=== PATIENT | male | born 1940 | race Hispanic/Latino ===

== ENCOUNTER 2018-09-02 05:41 | Observation (INO) | payer OTHER ==
[2018-08-30 09:24] VITALS: BP 158/65
[2018-08-30 09:27] LABS: BASOPHILS % (AUTO) 1.4 % (0.0-5.0); HEMATOCRIT 46.8 % (42-54); LYMPHOCYTES % (AUTO) 23.8 % (21.0-51.0); MEAN CORPUSCULAR HGB CONC 33.8 g/dL (32.0-36.0); MEAN CORPUSCULAR VOLUME 88.6 fL (79-99); MONOCYTES % (AUTO) 7.9 % (3.0-13.0); NEUTROPHILS % (AUTO) 64.9 % (40.0-77.0); PLATELET COUNT (AUTO) 206 K/uL (130-400); RED BLOOD CELL COUNT(AUTO) 5.28 MIL/uL (4.50-6.20); RED CELL DISTRIBUTION WIDTH 14.6 % (11.0-15.5); WHITE BLOOD COUNT (AUTO) 9.1 K/uL (4.8-10.8)
[2018-08-30 09:35] LABS: CREATININE 1.2 mg/dL (0.5-1.5); POTASSIUM 4.6 mmol/L (3.5-5.1)
[~2018-09-02] VITALS: Ht 154.9 cm; Wt 81.6 kg
[2018-09-02] VITALS (21 sets, daily range): BP systolic 85–154; BP diastolic 33–76
[~2018-09-02 05:41] MED LIST: ALLO100T PO; AMLO10TA7 PO; CEFAZOLIN SODIUM 1 GM VIAL IVP SCH; FINA5TAB41 PO; GABA-529 PO; LEVO5TAB13 PO; LISI40TA4 PO; SIMV20TA6 PO; TAMS0.4C32 PO
[2018-09-02] MEDS ORDERED: BUPIVACAINE/EPI/PF 0.25% 50 ML VIAL ONE (06:34)
[2018-09-02] MEDS ORDERED: THROMBIN-JMI 20000 UNIT KIT TP ONE (06:34)
[2018-09-02] MEDS ORDERED: BACITRACIN 50,000 UNIT VIAL ONE (06:34)
[2018-09-02] MEDS ORDERED: DURAMORPH PF1 MG/ML 10ML AMP IV ONE (06:35)
[2018-09-02] MEDS ORDERED: LACTATED RINGERS 1000ML 1,000 ML IV ONE (06:48)
--- NOTE | 2018-09-02 06:50 | NUR ---
PAIN no pain at rest ,has pain when ambulating radiates down right extremity Addendum: 09/02/18 at 0654 by OLVIN WELLS RN RN Amended: Links added.
[2018-09-02] MEDS: CEFAZOLIN SODIUM 1 GM VIAL ONE ×2 (07:04→08:50)
[2018-09-02] MEDS ORDERED: LIDOCAINE PF 2% 5ML ABBOJECT ONE (07:56)
[2018-09-02] MEDS ORDERED: DEXAMETHASONE SOD PHOSPHATE 10MG/ML 1ML VIAL ONE (07:57)
[2018-09-02] MEDS ORDERED: NEOSTIGMINE 5MG/5ML SYR IV ONE (07:57)
[2018-09-02] MEDS ORDERED: ROCURONIUM 10MG/1ML SYR 10 MG/ML ML ONE (07:57)
[2018-09-02] MEDS ORDERED: GLYCOPYRROLATE 1 MG/5 ML SYRINGE ONE (07:57)
[2018-09-02] MEDS ORDERED: PROPOFOL 10 MG/ML 20ML VIAL IV ONE ×2 (07:57)
[2018-09-02] MEDS ORDERED: FENTANYL CITRATE PF 50 MCG/1 ML 2ML VIAL ONE (07:58)
[2018-09-02] MEDS ORDERED: MIDAZOLAM HCL 1 MG/ML 2ML VIAL ONE (08:28)
[2018-09-02] MEDS ORDERED: EPHEDRINE SULFATE 50 MG/ML AMPULE ONE ×2 (08:51→09:50)
[2018-09-02] MEDS ORDERED: PROPOFOL 1000 MG/100 ML 100 ML IV ONE (09:20)
[2018-09-02] MEDS ORDERED: PHENYLEPHRINE HCL 10 MG/ML 1ML VIAL IV ONE (09:44)
[2018-09-02] MEDS ORDERED: ONDANSETRON HCL 4 MG/2 ML VIAL ONE (11:09)
[2018-09-02] MEDS ORDERED: FLUMAZENIL 0.1MG/1ML 5ML VIAL IV ONE (12:42)
[2018-09-02] MEDS ORDERED: LACTATED RINGERS 1000ML 1,000 ML IV SCH (13:24)
[2018-09-02] MEDS ORDERED: MORPHINE SULFATE 2 MG/ML 1ML SYG IVP PRN (13:30)
[2018-09-02] MEDS ORDERED: HYDROCODONE/ACETAMINOPHEN 5/325 MG TAB PO PRN (13:30)
[2018-09-02] MEDS ORDERED: PROMETHAZINE HCL 25 MG/ML 1ML AMPULE IM PRN (13:30)
[2018-09-02] MEDS ORDERED: SODIUM CHLORIDE 0.9% 10 ML VIAL IVP PRN (13:30)
--- NOTE | 2018-09-02 13:36 | NUR ---
TRANSFER FROM PACU TRANSFERRED FROM PACU, PER REPORT, VITAL SIGNS STABLE AND PATIENT AAOX3 WITH NO COMPLAINS OF PAIN. PT IS DROWSY BUT ABLE TO NOD YES AND NO WHEN ASKED QUESTIONS. VITAL SIGNS STABLE, NO NOTED SOB OR DISTRESS. PUPILS REACTIVE TO LIGHT. WILL CONTINUE TO MONITOR PT CLOSELY. INCISION TO LOWER BACK INTACT, SMALL SHADOWING ON DRESSING. BHASKAR SITE COVERED. PENDING TO COMPRESS BHASKAR 4 HR AFTER SURGERY.
[2018-09-02] MEDS: DEXAMETHASONE SOD PHOSPHATE 4 MG/ML 1ML VIAL IVP SCH ×2 (14:12→21:00)
--- NOTE | 2018-09-02 14:55 | NUR ---
SLURRED SPEECH PATIENT IS ALERT, HOB AT 30 DEGREES. FAMILY CALLED ME IN TO ROOM AFTER NOTED SLURRED SPEECH. PT ABLE TO STATE NAME AND WELL WHERE HE IS AT BUT WITH STUTTERING AND SLURRED SPEECH. PUPIL ARE REACTIVE TO LIGHT AND NO FACIAL DROOPING IS NOTED. PT IS ABLE TO RAISE BOTH ARMS AND LEGS. CRANE MAN FOR DR. LILLY MADE AWARE, STAT ORDER FOR ANGIO OF HEAD AND NECK WELL TELENEURO CONSULT. VITAL SIGNS STABLE AND PATIENT CONTINUES AWAKE WITH STUTTER. WILL CONTINUE TO MONITOR PT CLOSELY.
[2018-09-02] MEDS ORDERED: ASPIRIN 325MG EC TAB 325 MG TABLET.DR PO SCH (15:00)
[2018-09-02] MEDS ORDERED: GADODIAMIDE 10 MMOL/20 ML VIAL IV ONE (15:13)
[2018-09-02] MEDS ORDERED: IOHEXOL-350 75 ML VIAL IV ONE (15:14)
[2018-09-02 15:31] LABS: BASOPHILS % (AUTO) 0.2 % (0.0-5.0); EOSINOPHILS % (AUTO) 0.1 % (0.0-8.0); HEMATOCRIT 41.1 % (42-54); LYMPHOCYTES % (AUTO) 5.2 % (21.0-51.0); MEAN CORPUSCULAR HEMOGLOBIN 28.8 pg (27.0-33.0); MEAN CORPUSCULAR HGB CONC 32.9 g/dL (32.0-36.0); MEAN CORPUSCULAR VOLUME 87.4 fL (79-99); MONOCYTES % (AUTO) 0.6 % (3.0-13.0); NEUTROPHILS % (AUTO) 93.9 % (40.0-77.0); PLATELET COUNT (AUTO) 195 K/uL (130-400); RED CELL DISTRIBUTION WIDTH 14.3 % (11.0-15.5); WHITE BLOOD COUNT (AUTO) 12.4 K/uL (4.8-10.8)
[2018-09-02 15:40] LABS: CREATININE 1.4 mg/dL (0.5-1.5); POTASSIUM 3.7 mmol/L (3.5-5.1)
[2018-09-02 15:44] LABS: ALBUMIN 3.3 g/dL (3.5-5.0); BILIRUBIN,TOTAL 0.2 mg/dL (0.2-1.0); TOTAL PROTEIN, SERUM 6.7 g/dL (6.0-8.3)
[2018-09-02] MEDS: CEFAZOLIN SODIUM 1 GM VIAL IVP SCH ×2 (16:53→21:30)
--- NOTE | 2018-09-02 17:00 | NUR ---
FOLLOW UP ON SLURRED SPEECH PATIENT IS AAOX3. PER PT, SLURRED AND STUTTER SPEECH IS NO LONGER THERE. BEFORE WALKING INTO ROOM, HEARD PATIENT TALKING TO FAMILY MEMBERS WITHOUT STUTTER OR SLURRED WORDS. WILL CONTINUE TO MONITOR PT CLOSELY.
[2018-09-02] MEDS ORDERED: TAMSULOSIN HCL 0.4 MG CAP.ER.24H PO SCH (18:00)
[2018-09-02] MEDS ORDERED: FINASTERIDE 5 MG TABLET PO SCH (18:00)
[2018-09-02] MEDS ORDERED: SIMVASTATIN 20 MG TABLET PO SCH (21:00)
[2018-09-02] MEDS: GABAPENTIN 100 MG CAPSULE PO SCH (21:00)
[2018-09-02] MEDS ORDERED: CETIRIZINE HCL 5 MG TABLET PO SCH (21:00)
[2018-09-03] MEDS: DEXAMETHASONE SOD PHOSPHATE 4 MG/ML 1ML VIAL IVP SCH ×2 (01:24→06:42)
[2018-09-03 03:00] VITALS: BP 123/53
[2018-09-03] MEDS: CEFAZOLIN SODIUM 1 GM VIAL IVP SCH ×2 (05:30→08:22)
--- NOTE | 2018-09-03 05:40 | NUR ---
REMOVED SAUCEDO CATHETER, PT DTV AT 1300
[2018-09-03 08:02] VITALS: BP 138/64
[2018-09-03] MEDS: GABAPENTIN 100 MG CAPSULE PO SCH (08:28)
[2018-09-03] MEDS ORDERED: ALLOPURINOL 100 MG TABLET PO SCH (09:00)
[2018-09-03] MEDS ORDERED: ASPIRIN 325 MG TABLET PO SCH (09:00)
[2018-09-03] MEDS ORDERED: AMLODIPINE BESYLATE 5 MG TAB PO SCH (09:00)
[2018-09-03] MEDS ORDERED: LISINOPRIL 40 MG TABLET PO SCH (09:00)
--- NOTE | 2018-09-03 10:30 | NUR ---
BHASKAR drain removed after removing the 2 cedrick that were holding it together and dressing change performed to lumbar incision. Arabi intact to lumbar incision.
--- NOTE | 2018-09-03 11:15 | NUR ---
Discharge teaching completed in the room with pt and family at side. Emphasis on Dr. Vergara's discharge instructions for activity, s/s to monitor for, incision care, and follow up appts. Pt has appt with Dr. Vergara on 09/13; instructed him to take staple remover kit with him to appt. PIV to left AC removed at present, tip intact. Dressed with sterile 2x2 and band aid after hemostasis. Right arm PIV was already removed by Master Maddox RN. Written rx for asa and tramadol given to pt; discussed route, purpose, frequency, and duration of treatment, as well as side effects and adverse effects. Dressing changed and drain removed previously by Master Maddox RN. Pt wheeled to front lobby by [facility] staff for transport home via private car. Pt in stable condition at time of discharge.
== END 2018-09-03 11:26 | disposition home or self-care (01) ==
LOC: DAH 05:41 → 4AH 05:42
PROVIDERS: ADMIT Neurological Surgery; ATTEND Neurological Surgery
DX: M54.16 Radiculopathy, lumbar region (principal); M48.061 Spinal stenosis, lumbar region without neurogenic claudication; E78.5 Hyperlipidemia, unspecified; I10 Essential (primary) hypertension; I45.10 Unspecified right bundle-branch block; G81.94 Hemiplegia, unspecified affecting left nondominant side; M25.78 Osteophyte, vertebrae; F80.81 Childhood onset fluency disorder; R29.702 NIHSS score 2; Z86.73 Personal history of transient ischemic attack (TIA), and cerebral infarction without residual deficits; Z82.0 Family history of epilepsy and other diseases of the nervous system; Z82.49 Family history of ischemic heart disease and other diseases of the circulatory system; Z82.5 Family history of asthma and other chronic lower respiratory diseases; Z83.3 Family history of diabetes mellitus; Z79.899 Other long term (current) drug therapy
CPT/HCPCS: 36415 ×2; 63047; 70496; 70498; 72020; 80048; 80053; 80061; 85025 ×2; 93005; 96374; 96375; 96376 ×2; A4344; A4510; A4600; A4649 ×5; G0378 ×18; J0690 ×2; J1100 ×5; J2001; J2250; J2274; J2370; J2405; J2704 ×3; J2710; J3010; J3490 ×5; J7030; J7120 ×2; Q9967; A9579